=== PATIENT | female | born 1950 | race Caucasian/White ===

== ENCOUNTER 2016-07-15 06:18 | Emergency (ER) | payer OTHER ==
[~2016-07-15] VITALS: Ht 167.6 cm; Wt 91.8 kg
[~2016-07-15 06:18] MED LIST: ALLERGY RELIEF10 M1 PO; ASPIR-LOW81 MG PO; ASPIRIN81 M1 PO; AUGMENTIN875 MG PO; Ativan PO; BUPROPION XL300 MG PO; CALTRATE 6001 TABLE1 PO; DIOVAN PO; EFFEXOR XR150 MG PO; ESSENTIAL DAIL1 EACH PO; Ecotrin PO; FOLIC ACID PO; KLONOPIN0.5 M1 PO; KRILL OIL 3001 EACH PO; LORATADINE10 M2 PO; LORTAB 5-325 M1 EACH PO; METOPROLOL SUCC50 MG PO; MONTELUKAST SOD10 MG PO; MOTRIN600 MG PO; NEXIUM40 MG PO; OMEGA-3 KRILL1 EACH PO; PRAVACHOL20 MG PO; RED YEAST RICE600 MG PO; REGLAN10 M1 PO; SENOKOT S,PE1 TABLET PO; SINGULAIR10 MG PO; SKELAXIN800 MG PO; TYLENOL WITH C1 EACH PO; Toprol XL PO; VITAMIN D1000 INTUN PO; Vicodin,Norco 5/325 PO; WELLBUTRIN; WOMEN'S DAILY1 EAC1 PO; Wellbutrin XL PO; ZOFRAN4 MG PO
[2016-07-15] MEDS ORDERED: PRILOSEC10 MG PO (06:54)
[2016-07-15] MEDS ORDERED: KLOR-CON SPRINK8 MEQ PO (06:54)
[2016-07-15] MEDS ORDERED: ZYRTEC10 M2 PO (06:55)
[2016-07-15] MEDS ORDERED: VITAMIN D2000 UNI1 PO (06:56)
[2016-07-15 07:27] LABS: EOSINOPHIL (%) 2.6 % (0-5); EOSINOPHIL COUNT 0.2 K/uL (0-0.3); HEMATOCRIT 42.2 % (36.0-46.0); IMMATURE GRANULOCYTE (%) 0.2 % (0.0-0.7); IMMATURE GRANULOCYTE COUNT 0.1 K/uL; MCH 29.9 PG (29.0-34.0); MCHC 33.9 G/DL (30.0-36.0); MCV 88.3 FL (83-99); MONOCYTE (%) 10.3 % (3-12); MONOCYTE COUNT 0.6 K/uL (0-0.8); NEUTROPHIL (%) 52.3 % (45-76); NEUTROPHIL COUNT 3.1 K/uL (1.8-6.4); PLATELET COUNT 261 K/uL (156-360); RBC DIS.WIDTH-CV 13.4 % (11.8-14.6); RBC DIS.WIDTH-SD 42.5 % (39-53); RED BLOOD COUNT 4.78 M/uL (3.80-5.20); WHITE BLOOD COUNT 5.8 K/uL (4.1-10.2)
[2016-07-15 07:55] LABS: ANION GAP 10 MEQ/L (2-14); CHLORIDE 108 MEQ/L (99-109); POTASSIUM 4.1 MEQ/L (3.7-5.4); SAMPLE HEMOLYSIS CHECK 0; SAMPLE ICTERIC CHECK 0; SAMPLE LIPEMIA CHECK 0; SODIUM 141 MEQ/L (136-147)
[2016-07-15 08:01] LABS: GFR ESTIMATE (CALCULATED) 30 mL/min/; GLUCOSE 102 mg/dL (70-99); UREA NITROGEN (BUN) 18 mg/dL (9-23)
[2016-07-15 08:06] LABS: TROP-I INTERPRETATION NEGATIVE; TROPONIN-I < 0.01 ng/mL (0.0-0.30)
[2016-07-15] MEDS ORDERED: LEVAQUIN500 MG PO (09:58)
[2016-07-15] MEDS ORDERED: TYLENOL WITH C1 EACH PO (09:58)
[2016-07-15] MEDS ORDERED: PROAIR HFA8.5 GM IH (09:58)
[2016-07-15 10:38] VITALS: BP 139/92
== END 2016-07-15 10:39 | disposition home or self-care (01) ==
LOC: EME 06:18
PROVIDERS: Emergency Medicine
DX: J44.0 Chronic obstructive pulmonary disease with (acute) lower respiratory infection (principal); I12.9 Hypertensive chronic kidney disease with stage 1 through stage 4 chronic kidney disease, or unspecified chronic kidney disease; J20.9 Acute bronchitis, unspecified; N18.9 Chronic kidney disease, unspecified; K21.9 Gastro-esophageal reflux disease without esophagitis; E78.5 Hyperlipidemia, unspecified; Z87.442 Personal history of urinary calculi
CPT/HCPCS: 71020; 80048; 83880; 84484; 85025; 93005; 94640; 99281; 99284; J1100

== ENCOUNTER → 2016-09-04 | Outpatient (CLI) | payer OTHER ==
[~2016-09-04] MED LIST changes: +KLOR-CON SPRINK8 MEQ PO; +LEVAQUIN500 MG PO; +PRILOSEC10 MG PO; +PROAIR HFA8.5 GM IH; +VITAMIN D2000 UNI1 PO; +ZYRTEC10 M2 PO
== END | disposition home or self-care (01) ==
LOC: RES 09:46
DX: J44.9 Chronic obstructive pulmonary disease, unspecified (principal)
CPT/HCPCS: 94060; 94726; 94729